=== PATIENT | female | born 1990 | race Caucasian/White ===

== ENCOUNTER 2017-12-30 11:16 | Emergency (ER) | payer BC, SELFPAY ==
[2017-12-30 11:17] VITALS: BP 125/73; PULSE 90; RESP 20; TEMP 36.8; O2SAT 98; BMI 21.6
[2017-12-30] MEDS: MethylPREDNISolone 125 MG/2 ML Vial IV (12:14)
[2017-12-30] MEDS: DiphenhydrAMINE 50 MG/ML Syringe 25 MG IV (12:14)
[2017-12-30 12:17] VITALS: BP 112/73; PULSE 70; RESP 20; O2SAT 100
[2017-12-30 13:00] VITALS: BP 105/67; PULSE 76; RESP 22; O2SAT 100
--- NOTE | 2017-12-30 13:11 | ED.VISSUMM ---
- ER Visit Summary Date of Service: 12/30/17 Chief Complaint: Allergic reaction History of Present Illness: The patient is a 27 F who ate peanuts yesterday evening and had a scratchy throat. She took some Benadryl and it got better. Today she ate some food containing peanuts again and had a scratchy throat with nausea and mild shortness of breath. She took Benadryl but it did not seem to improve her symptoms. She was advised to come to the emergency department. She has no known allergy to peanuts no history of anaphylaxis. Physical Examination: Afebrile and vital signs unremarkable. Alert and oriented. No acute distress. Sitting and breathing comfortably. HEENT exam unremarkable. No rash noted. Heart regular rate and rhythm. Lungs clear bilaterally. Test Results: None indicated Emergency Department Course and Treatment: Patient placed on a monitor. IV access was obtained. She was treated with Benadryl, Pepcid, and Solu-Medrol. She was observed for about an hour, and her symptoms improved. We discussed anaphylaxis. I am not 100% convinced this is anaphylaxis, but we discussed that ingestions could present with delayed onset anaphylaxis and prolonged symptoms. She will avoid peanuts and tree nuts. She will follow-up for outpatient allergy testing. Her doctor did prescribe an EpiPen and she is comfortable using it. I will start her on Pepcid, Benadryl, and prednisone for 5 days total. She will monitor for any worsening signs or symptoms and return right away if they develop. Treatment Plan: As above Disposition: Discharged Impression: 1. Allergic reaction This note was generated with [employer] dictation software. It may contain incorrect words, spelling, and punctuation that were not noted in review of the chart prior to signing ED Disposition - Plan for ED Patient: Chief Complaint: Allergic Reaction Referrals: [facility] Doctor,Out of [Primary Care Provider] -
--- NOTE | 2017-12-30 13:14 | ED.DCSUM_ITS ---
- ER Visit Summary Date of Service: 12/30/17 Chief Complaint: Allergic reaction History of Present Illness: The patient is a 27 F who ate peanuts yesterday evening and had a scratchy throat. She took some Benadryl and it got better. Today she ate some food containing peanuts again and had a scratchy throat with nausea and mild shortness of breath. She took Benadryl but it did not seem to improve her symptoms. She was advised to come to the emergency department. She has no known allergy to peanuts no history of anaphylaxis. Physical Examination: Afebrile and vital signs unremarkable. Alert and oriented. No acute distress. Sitting and breathing comfortably. HEENT exam un remarkable. No rash noted. Heart regular rate and rhythm. Lungs clear bilaterally. Test Results: None indicated Emergency Department Course and Treatment: Patient placed on a monitor. IV access was obtained. She was treated with Benadryl, Pepcid, and Solu-Medrol. She was observed for about an hour, and her symptoms improved. We discussed anaphylaxis. I am not 100% convinced this is anaphylaxis, but we discussed that ingestions could present with delayed onset anaphylaxis and prolonged symptoms. She will avoid peanuts and tree nuts. She will follow-up for outpatient allergy testing. Her doctor did prescribe an EpiPen and she is comfortable using it. I will start her on Pepcid, Benadryl, and prednisone for 5 days total. She will monitor for any worsening signs or symptoms and return right away if they develop. Treatment Plan: As above Disposition: Discharged Impression: 1. Allergic reaction This note was generated with [employer] dictation software. It may contain incorrect words, spelling, and punctuation that were not noted in review of the chart prior to signing ED Disposition - Plan for ED Patient: Chief Complaint: Allergic Reaction Referrals: [facility] Doctor,Out of [Primary Care Provider] -
--- NOTE | 2017-12-30 13:14 | ED.DEP ---
ED Disposition - Plan for ED Patient: Chief Complaint: Allergic Reaction Instructions: ED Allergic Reaction General Other Prescriptions: Prednisone 40 mg PO DAILY 4 Days #16 tab Famotidine [Pepcid] 20 mg PO BID 5 Days #10 tab DiphenhydrAMINE [Benadryl] 25 mg PO TID 5 Days #15 cap Referrals: [facility],Out of [Primary Care Provider] -
[2017-12-30 13:26] VITALS: BP 103/69; PULSE 71; RESP 19; O2SAT 100
== END 2017-12-30 13:27 | disposition home or self-care (01) ==
LOC: ED 13:15
PROVIDERS: Emergency Provider Emergency Medicine
DX: T78.1XXA Other adverse food reactions, not elsewhere classified, initial encounter (principal); X58.XXXA Exposure to other specified factors, initial encounter; J02.9 Acute pharyngitis, unspecified; J45.909 Unspecified asthma, uncomplicated
CPT/HCPCS: 96374; 96375; 99284; A4216; J3490

== ENCOUNTER 2020-07-13 08:12 | Emergency (ER) | payer OTHER, BC, SELFPAY ==
[2020-07-13 08:13] VITALS: BP 126/72; PULSE 65; RESP 17; TEMP 36; O2SAT 97; BMI 20.9
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
--- NOTE | 2020-07-13 08:38 | CT_ITS ---
STUDY: CT BRAIN WITHOUT CONTRAST REASON FOR EXAM: Female, 29 years old. Concussion RADIATION DOSAGE (If Supplied By Facility): CTDIvol = ( 44.99 ) mGy, DLP = ( 745.49 ) mGycm TECHNIQUE: Transaxial CT imaging of the brain was performed without administration of intravenous contrast material. Individualized dose optimization techniques were used for this CT. COMPARISON: No relevant priors. FINDINGS: Normal soft tissue structures. Normal calvarium. Normal size ventricles and extra-axial spaces for the patient''s age. Normal white matter tracts of the cerebral hemispheres. Normal basal ganglia and thalami. Normal brainstem. Normal cerebellum. There is no intracranial hemorrhage. There are no findings of an acute ischemic infarction. Normal visualized paranasal sinuses. CT/Brain/Head without Contrast IMPRESSION: Normal unenhanced CT scan of the brain. Electronically Signed: Joni Zheng MD at 9:27 EDT , Service support ,
--- NOTE | 2020-07-13 08:40 | ED.RN ---
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
[2020-07-13] MEDS: Ibuprofen 600 MG Tablet PO (10:01)
[2020-07-13] MEDS: Ondansetron ODT 4 MG Tablet 8 MG PO (10:01)
== END 2020-07-13 10:07 | disposition home or self-care (01) ==
LOC: ED 09:41
PROVIDERS: Emergency Provider Emergency Medicine
DX: S06.0X0A Concussion without loss of consciousness, initial encounter (principal); S00.33XA Contusion of nose, initial encounter; Y04.2XXA Assault by strike against or bumped into by another person, initial encounter; Y93.89 Activity, other specified; Y92.89 Other specified places as the place of occurrence of the external cause; Y99.0 Civilian activity done for income or pay
CPT/HCPCS: 70450; 99283